=== PATIENT | male | born 2005 | race Caucasian/White ===

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

== ENCOUNTER 2025-05-08 12:24 | Emergency (ER) | payer OTHER ==
[~2025-05-08] VITALS: Ht 185.4 cm; Wt 109.6 kg
[2025-05-08 12:25] VITALS: TEMP 97.5
--- NOTE | 2025-05-08 13:05 | RADIOLOGY REPORT ---
DI HAND, COMPLETE (3VW MIN), INDICATION: Thumb FB TECHNICAL DATA: Frontal, oblique and lateral views were obtained of the right hand. COMPARISON: None FINDINGS: No fracture is identified. Joint spaces are maintained. Alignment is anatomic. Soft tissue lesion appears attached to the thumb. IMPRESSION: No acute fracture or dislocation of the right hand. Soft tissue lesion appears attached to the thumb.
[2025-05-08] MEDS ORDERED: CEPH-585 PO (13:06)
--- NOTE | 2025-05-08 13:06 | Physician Documentation ---
History of Present Illness ~ Chief Complaint: Hand pain Stated Complaint: WOUND ON FINGER Time Seen by MD: 12:36 Primary Medical Doctor: None HPI 20-year-old right-hand dominant male presents to the emergency department for evaluation of a lesion to the left thumb. Reports he noticed a small pleural lack macule two months ago that he picked with a needle and since that time has developed a multi lobulated lesion a proximally half a cm circumference. Tetanus within 5 years: No Medication Reconciliation Allergies: Coded Allergies: No Known Allergies (Unverified , 05/08/25) Scheduled Cephalexin*Monohydrate* (Keflex*), 1 CAP PO Q8H Past Medical History Past Medical History: No Pertinent History Past Surgical History: no surgical history Lives with: Family Lives In: Home Occupation: child Review of Systems All Other Systems at this time: Reviewed and Negative Musculoskeletal: Reports: see HPI Physical Exam Vital Signs: RN Vital Signs have been reviewed: Yes, Temperature: 97.5, Source: Temporal, Heart Rate: 114, Respiratory Rate: 20, BP: 143/94, Pulse Oximetry: 100, Weight: 109.600 Oxygen Flow Rate: 0 General Appearance: alert, WD/WN, mild distress EENT: PERRL/EOMI Respiratory: no respiratory distress Chest: no accessory muscle use Wrist: normal inspection Hand: normal inspection Digit: other (Lesion to left thumb) Digit Multilobulated lesion with asymmetrical borders of multi color approximately half a cm in the distal portion of the left thumb without joint involvement. Skin: normal color, warm/dry Lymphatic: normal inspection Neurologic: oriented x4 Psychiatric: normal mood/affect Progress Results/Orders Results/Orders Orders - DARREN LEMUS PAC Hand, Complete (3vw Min) (05/08/25 12:45) Completed Orders - DARREN LEMUS PAC Hand, Complete (3vw Min) (05/08/25 12:45) Vital Signs 05/08/25 05/08/25 12:25 13:33 Temp 97.5 Pulse 114 68 Resp 20 14 B/P (MAP) 143/94 128/76 Pulse Ox 100 100 O2 Flow Rate 0 Medical Decision Making Additional information obtaine: family Findings Multilobulated growth to the distal left thumb requires orthopedic follow up in evaluation for suspicious lesion including cancer tumor. X-ray imaging reassuring for no bony pathology or foreign body. We will cover empirically with Keflex. General Diff Dx:Considerations: Include: Abrasion, Contusion, Fracture, Hematoma, Laceration, Malunion, Neurovascular injury, Open fracture, Sprain, Ulcer, Other Shoulder Diff Dx:Consideration: Include: Other Elbow Diff Dx:Considerations: Include: Other (Tributary noncontributory) Wrist Diff Dx:Considerations: Include: Other (Noncontributory) Hand Diff Dx:Considerations: Include: Other (Noncontributory) Finger Diff Dx:Considerations: Include: Abrasion, Cellulitis, Contusion, Dislocation, Fracture, Hematoma, Laceration, Neurovascular injury, Open fracture, Subungual hematoma, Other (Cancers tumor) Departure Disposition: HOME / SELF CARE / HOMELESS Impression: Primary Impression: Left thumb lesion Condition: Stable Additional Instructions: Please contact the orthopedic office of Dr. Vickers for follow up definitive management. Establish with [facility] and begin antibiotic as directed. Your x-rays obtained today are reassuring. Thank you for visiting emergency department [facility]. Referrals: NO PRIMARY CARE PROVIDER (PCP) NINA VICKERS MD 1 week 20-year-old male right-hand dominant with suspicious lesion on the distal left thumb. Thank you for the consultation. [facility] ER Prescriptions Cephalexin*Monohydrate* (Keflex*) 500 Mg Capsule 1 CAP PO Q8H for 10 Days, #30 CAP Prov: DARREN LEMUS 05/08/25 Education Educated: Patient, Family Educated regarding: diagnosis, treatment, prognosis, need for follow up Signature Scribe Signature: . Attestation: . DARREN LEMUS May 08, 2025 13:06
[2025-05-08 13:33] VITALS: BP 128/76; PULSE 68; RESP 14; O2SAT 100
== END 2025-05-08 13:30 | disposition home or self-care (01) ==
LOC: ER 12:24
DX: L98.8 Other specified disorders of the skin and subcutaneous tissue (principal)
CPT/HCPCS: 73130; 99283